=== PATIENT | female | born 1995 | race Caucasian/White ===

== ENCOUNTER 2017-01-18 20:43 | Observation (INO) | payer OTHER ==
[~2017-01-18 20:43] MED LIST: FLUT1SPR9 EACH NARE; HYDR-3533 PO; NAPR550 PO; Z.0.BCPILL PO; ZOFR4TAB3 SL
[2017-01-18 20:45] VITALS: BP 130/85; PULSE 115; RESP 16; TEMP 98.9; O2SAT 100
--- NOTE | 2017-01-18 21:11 | PD ---
HPI Chief Complaint: GI Complaint Time Seen by Provider: 21:09 Travel History International Travel<30 days: No Contact w/Intl Traveler<30days: No Traveled to known affect area: No History of Present Illness HPI 21-year-old female came to the emergency room with history of vomiting and diarrhea for past 15 days. Now she is having some epigastric pain as well. She was tachycardic in triage but did not appear to be in significant distress. She said her last vomit was about 1 hour ago along with diarrhea 2. The diarrhea is watery and nonbloody. She is otherwise a healthy person. Her pain is epigastric and nonradiating. PFSH Past Medical History Narrative Medical List of her past medical, surgical, social and family history was reviewed from the nursing note. GERD: Yes Reproductive: Yes (ENDOMETRIOSIS) Migraines: Yes ?: Not LMP: 01/09/17 : 1 Para: 1 Ovarian Cysts: Yes Social History Alcohol Use: No Tobacco Use: No Substance Use: No Allergies-Medications (Allergen,Severity, Reaction): Coded Allergies: No Known Allergies (Unverified , 01/18/17) Comments No known drug allergies. Reported Meds & Prescriptions Reported Meds & Active Scripts Active Reported Lortab (Hydrocodone-Acetaminophen) 5-325 Mg Tab 1 Tab PO Q6H PRN Narrative Medication List of her home medications reviewed from the nursing note. Review of Systems Except as stated in HPI: all other systems reviewed are Neg Physical Exam Narrative GENERAL: Awake, alert, no obvious distress SKIN: Focused skin assessment warm/dry. HEAD: Atraumatic. Normocephalic. EYES: Pupils equal and round. No scleral icterus. No injection or drainage. ENT: No nasal bleeding or discharge. Dry mucous membrane NECK: Trachea midline. No JVD. CARDIOVASCULAR: Regular rate and rhythm. Tachycardia. No murmur appreciated. RESPIRATORY: No accessory muscle use. Clear to auscultation. Breath sounds equal bilaterally. GASTROINTESTINAL: Abdomen soft, non-tender, nondistended. Hepatic and splenic margins not palpable. MUSCULOSKELETAL: No obvious deformities. No clubbing. No cyanosis. No edema. NEUROLOGICAL: Awake and alert. No obvious cranial nerve deficits. Motor grossly within normal limits. Normal speech. PSYCHIATRIC: Appropriate mood and affect; insight and judgment normal. Data Data Last Documented VS Orders Complete Blood Count With Diff (01/18/17 21:16) Comprehensive Metabolic Panel (01/18/17 21:16) Urinalysis - C+S If Indicated (01/18/17 21:16) Iv Access Insert/Monitor (01/18/17 21:16) Ecg Monitoring (01/18/17 21:16) Oximetry (01/18/17 21:16) Ondansetron Inj (Zofran Inj) (01/18/17 21:30) Sodium Chlor 0.9% 1000 Ml Inj (Ns 1000 M (01/18/17 21:16) Sodium Chloride 0.9% Flush (Ns Flush) (01/18/17 21:30) Ed Urine Pregnancytest Poc (01/18/17 21:16) Lipase (01/18/17 21:37) Sodium Chlor 0.9% 1000 Ml Inj (Ns 1000 M (01/18/17 22:00) Ct Abd/Pel W Iv Contrast(Rout) (01/18/17 ) Pantoprazole Inj (Protonix Inj) (01/19/17 00:00) Iohexol 350 Inj (Omnipaque 350 Inj) (01/19/17 00:28) Admit Order (Ed Use Only) (01/19/17 00:53) Labs MDM Medical Decision Making Medical Screen Exam Complete: Yes Emergency Medical Condition: Yes Medical Record Reviewed: Yes Differential Diagnosis Acute gastritis, acute gastroenteritis, C. difficile colitis, acute pancreatitis Narrative Course 11:54 PM blood test results are back and patient has leukocytosis. But her chemistry was completely within normal limit. Patient was given a liter of IV fluid bolus along with Zofran. She did not have anymore diarrhea episodes but when I went back to reassess her her heart rate was 110 and she told me that she was still having the epigastric pain. At this point I have ordered a CT scan of her abdomen and pelvis. She'll get another liter of IV fluid bolus and Protonix. Waiting for the CAT scan to be done and resulted. 12:[address] shows terminal ileitis. Patient's heart rate at this point is in 100s. Upon asking she said she still has the abdominal pain. I will order some morphine but at this point I decided that she should be admitted so that GI can decide whether to scope her to rule out Crohn's disease. Hospitalist accepted the patient. Procedures EKG Prior to Arrival: No Diagnosis Primary Impression: Diarrhea Qualified Code: R19.7 - Diarrhea, unspecified type Additional Impressions: Abdominal pain Qualified Code: R10.13 - Epigastric pain Leukocytosis Qualified Code: D72.829 - Leukocytosis, unspecified type Terminal ileitis Qualified Code: K50.019 - Terminal ileitis, unspecified complication Admitting Information Admitting Physician Requests: Admit Scripts Simethicone (Gas Relief Maximum Streng)125 Mg [id number] Mg PO Q8HR #90 EA Prov:Shara Rdz 01/23/17 Pantoprazole 40 Mg Tab40 Mg PO DAILY #30 TAB Prov:Shara Rdz 01/23/17 Qasim Eller MD Jan 18, 2017 21:11 Eosinophils (%) (Auto) 4.6 % Basophils (%) (Auto) 0.6 % Neutrophils # (Auto) 15.3 TH/MM3 Lymphocytes # (Auto) 2.7 TH/MM3 Monocytes # (Auto) 0.8 TH/MM3 Eosinophils # (Auto) 0.9 TH/MM3 Basophils # (Auto) 0.1 TH/MM3 CBC Comment DIFF FINAL Differential Comment Sodium Level 140 MEQ/L Potassium Level 3.6 MEQ/L Chloride Level 106 MEQ/L Carbon Dioxide Level 24.6 MEQ/L Anion Gap 9 MEQ/L Blood Urea Nitrogen 11 MG/DL Creatinine 0.73 MG/DL Estimat Glomerular Filtration 100 ML/MIN Rate Random Glucose 76 MG/DL Calcium Level 9.2 MG/DL Total Bilirubin 0.4 MG/DL Aspartate Amino Transf 10 U/L (AST/SGOT) Alanine Aminotransferase 18 U/L (ALT/SGPT) Alkaline Phosphatase 122 U/L Total Protein 8.5 GM/DL Albumin 4.1 GM/DL Lipase 123 U/L Urine Color YELLOW Urine Turbidity HAZY Urine pH 5.0 Urine Specific [place] 1.024 Urine Protein TRACE mg/dL Urine Glucose (UA) NEG mg/dL Urine Ketones NEG mg/dL Urine Occult Blood MOD Urine Nitrite NEG Urine Bilirubin NEG Urine Urobilinogen LESS THAN 2.0 MG/DL Urine Leukocyte Esterase TRACE Urine RBC 9 /hpf Urine WBC 7 /hpf Urine Squamous Epithelial 3 /hpf Cells Urine Bacteria RARE /hpf Urine Hyaline Casts 4 /lpf Urine Mucus FEW /lpf Microscopic Urinalysis Comment CULT NOT INDICATED MDM Medical Decision Making Medical Screen Exam Complete: Yes Emergency Medical Condition: Yes Medical Record Reviewed: Yes Differential Diagnosis Acute gastritis, acute gastroenteritis, C. difficile colitis, acute pancreatitis Narrative Course 11:54 PM blood test results are back and patient has leukocytosis. But her chemistry was completely within normal limit. Patient was given a liter of IV fluid bolus along with Zofran. She did not have anymore diarrhea episodes but when I went back to reassess her her heart rate was 110 and she told me that she was still having the epigastric pain. At this point I have ordered a CT scan of her abdomen and pelvis. She'll get another liter of IV fluid bolus and Protonix. Thing for the CAT scan to be done and resulted. 12:[address] shows terminal ileitis. Patient's heart rate at this point is in 100s. Upon asking she said she still has the abdominal pain. I will order some morphine but at this point I decided that she should be admitted so that GI can decide whether to scope her to rule out Crohn's disease. Hospitalist accepted the patient. Procedures EKG Prior to Arrival: No Diagnosis Primary Impression: Diarrhea Qualified Code: R19.7 - Diarrhea, unspecified type Additional Impressions: Abdominal pain Qualified Code: R10.13 - Epigastric pain Leukocytosis Qualified Code: D72.829 - Leukocytosis, unspecified type Terminal ileitis Qualified Code: K50.019 - Terminal ileitis, unspecified complication Admitting Information Admitting Physician Requests: it Qasim Eller MD Jan 18, 2017 21:11
[2017-01-18] MEDS ORDERED: SODIUM CHLOR 0.9% 1000 ML INJ 1,000 ML IV SCH (21:16)
[2017-01-18] MEDS ORDERED: HYDR-3533 PO (21:21)
[2017-01-18] MEDS ORDERED: OFFICE MEDICATION (21:21)
[2017-01-18] MEDS ORDERED: MEDI220T PO (21:21)
[2017-01-18 21:22] VITALS: O2SAT 95
[2017-01-18] MEDS ORDERED: SODIUM CHLORIDE 0.9% FLUSH 10 ML FLUSH IV FLUSH PRN (21:30)
[2017-01-18] MEDS ORDERED: ONDANSETRON HCL 4 MG/2 ML VIAL IVP ONE (21:30)
[2017-01-18 21:35] LABS: AUTOMATED NEUTROPHIL # 15.3 TH/MM3 (1.8-7.7); BASOPHIL # 0.1 TH/MM3 (0-0.2); BASOPHIL % 0.6 % (0.0-2.0); EOSINOPHIL # 0.9 TH/MM3 (0-0.4); EOSINOPHIL % 4.6 % (0.0-4.0); HEMATOCRIT 40.6 % (35.0-46.0); HEMO FLAGS DIFF FINAL; LYMPH % 13.6 % (9.0-44.0); LYMPHOCYTE # 2.7 TH/MM3 (1.0-4.8); MEAN CELL VOLUME 77.6 FL (80.0-100.0); MEAN CORPUSCULAR HEMOGLOBIN 25.1 PG (27.0-34.0); MEAN CORPUSCULAR HGB CONC 32.3 % (32.0-36.0); MONO % 4.1 % (0.0-8.0); NEUT % 77.1 % (16.0-70.0); PLATELET COUNT 379 TH/MM3 (150-450); RED BLOOD COUNT 5.23 MIL/MM3 (4.00-5.30); RED CELL DISTRIBUTION WIDTH 14.1 % (11.6-17.2); WHITE BLOOD COUNT 19.8 TH/MM3 (4.0-11.0)
[2017-01-18] MEDS ORDERED: SODIUM CHLOR 0.9% 1000 ML INJ 1,000 ML IV ONE (22:00)
[2017-01-18 22:04] LABS: ANION GAP 9 MEQ/L (5-15); AST (GOT) 10 U/L (15-37); BICARBONATE 24.6 MEQ/L (21.0-32.0); BLOOD UREA NITROGEN 11 MG/DL (7-18); CHLORIDE 106 MEQ/L (98-107); GLOMERULAR FILTRATION RATE 100 ML/MIN (>89); POTASSIUM 3.6 MEQ/L (3.5-5.1); SODIUM (NA) 140 MEQ/L (136-145)
[2017-01-18 22:05] LABS: ALT (GPT) 18 U/L (10-53)
[2017-01-18 22:07] LABS: ALKALINE PHOSPHATASE 122 U/L (45-117); TOTAL BILIRUBIN ADULT 0.4 MG/DL (0.2-1.0)
[2017-01-18 22:20] VITALS: BP 109/56; PULSE 95; RESP 18; O2SAT 100
[2017-01-18 23:34] LABS: BACTERIA, URINE RARE /hpf; BLOOD, URINE MOD (NEG); COMMENT (UR) CULT NOT INDICATED; CULTURE IF INDICATED CULT NOT INDICATED; GLUCOSE,URINE NEG (NEG); HYALINE CAST, URINE 4 /lpf (RARE); KETONE, URINE NEG (NEG); MUCUS URINE FEW /lpf (OCC); NITRITE,URINE NEG (NEG); SQUAMOUS EPITHELIAL CELL URINE 3 /hpf (0-5); URINE COLOR YELLOW (YELLW/STRAW)
[2017-01-19] VITALS (7 sets, daily range): BP systolic 93–127; BP diastolic 52–71; PULSE 79–99; RESP 16–18; TEMP 97.1–98.4; O2SAT 94–100
[2017-01-19] MEDS ORDERED: PANTOPRAZOLE SODIUM 40 MG VIAL IV PUSH ONE
[2017-01-19] MEDS ORDERED: IOHEXOL 350 MG/ML 10 ML VIAL (for RAD DIAG) IV ONE (00:28)
--- NOTE | 2017-01-19 00:36 | RADRPT ---
EXAM DATE/TIME: 01/19/2017 00:15 [facility] COMPARISON: No previous studies available for comparison. INDICATIONS : Epigastric pain, nausea and vomiting. IV CONTRAST: 96 cc Omnipaque 350 (iohexol) IV ORAL CONTRAST: No oral contrast ingested. RADIATION DOSE: 9.96 CTDIvol (mGy) MEDICAL HISTORY : Gastroesophageal reflux disease. Endometriosis. Ovarian cysts. SURGICAL HISTORY : None. ENCOUNTER: Initial ACUITY: 2 days PAIN SCALE: 10/10 LOCATION: Bilateral upper quadrant TECHNIQUE: Volumetric scanning of the abdomen and pelvis was performed. Using automated exposure control and ad justment of the mA and/or kV according to patient size, radiation dose was kept as low as reasonably achievable to obtain optimal diagnostic quality images. DICOM format image data is available electro nically for review and comparison. FINDINGS: LOWER LUNGS: The visualized lower lungs are clear. LIVER: Homogeneous density without lesion. There is no dilation of the biliary tree. No calcified gallston es. SPLEEN: Normal size without lesion. PANCREAS: Within normal limits. KIDNEYS: Normal in size and shape. There is no mass, stone or hydronephrosis. ADRENAL GLANDS: Within normal limits. VASCULAR: There is no aortic aneurysm. BOWEL/MESENTERY: There is wall thickening of the distal and terminal ileum. Some slight inflammatory changes. Appendix is normal. Small lymph nodes in the right lower quadrant. There is no free intraperitoneal air or f luid. ABDOMINAL WALL: Within normal limits. RETROPERITONEUM: There is no lymphadenopathy. BLADDER: No wall thickening or mass. REPRODUCTIVE: Within normal limits. INGUINAL: There is no lymphadenopathy or hernia. MUSCULOSKELETAL: Within normal limits for patient age. CONCLUSION: Wall thickening and slight inflammatory change involving the distal and terminal ileum, could be infe ctious or inflammatory such as Crohn's disease. Ferny Morrison MD on January 19, 2017 at 0:32 Board Certified Radiologist. This report was verified electronically.
[2017-01-19] MEDS ORDERED: MORPHINE SULFATE 4 MG/ML INJ IV PUSH ONE (01:00)
[2017-01-19] MEDS ORDERED: SODIUM CHLORIDE 0.9% FLUSH 10 ML FLUSH IV FLUSH PRN (01:45)
[2017-01-19] MEDS ORDERED: BISACODYL 10 MG SUPP RECTAL PRN (01:45)
[2017-01-19] MEDS ORDERED: SENNOSIDES 8.6 MG TAB PO PRN (01:45)
[2017-01-19] MEDS ORDERED: MAGNESIUM HYDROXIDE SUSP 30 ML CUP PO PRN (01:45)
[2017-01-19] MEDS ORDERED: NALOXONE HCL 0.4 MG/ML AMP IV PRN (01:45)
[2017-01-19] MEDS ORDERED: LACTULOSE SYRUP 20 GM/30 ML CUP PO PRN (01:45)
[2017-01-19] MEDS ORDERED: SODIUM CHLOR 0.9% 1000 ML INJ 1,000 ML IV SCH (01:54)
[2017-01-19] MEDS: PANTOPRAZOLE SODIUM 40 MG VIAL IV PUSH SCH (02:00)
[2017-01-19] MEDS: SODIUM CHLOR 0.45% 1000 ML INJ 1,000 ML IV SCH ×2 (02:13→16:24)
[2017-01-19 07:13] LABS: AUTOMATED NEUTROPHIL # 7.3 TH/MM3 (1.8-7.7); BASOPHIL # 0.1 TH/MM3 (0-0.2); BASOPHIL % 0.5 % (0.0-2.0); EOSINOPHIL % 7.6 % (0.0-4.0); HEMATOCRIT 31.6 % (35.0-46.0); HEMO FLAGS DIFF FINAL; LYMPH % 29.5 % (9.0-44.0); LYMPHOCYTE # 3.8 TH/MM3 (1.0-4.8); MEAN CELL VOLUME 77.7 FL (80.0-100.0); MEAN CORPUSCULAR HEMOGLOBIN 25.1 PG (27.0-34.0); MEAN CORPUSCULAR HGB CONC 32.4 % (32.0-36.0); MONO % 5.6 % (0.0-8.0); NEUT % 56.8 % (16.0-70.0); PLATELET COUNT 287 TH/MM3 (150-450); RED BLOOD COUNT 4.06 MIL/MM3 (4.00-5.30); RED CELL DISTRIBUTION WIDTH 13.9 % (11.6-17.2); WHITE BLOOD COUNT 12.8 TH/MM3 (4.0-11.0)
[2017-01-19 07:35] LABS: ALKALINE PHOSPHATASE 93 U/L (45-117); ALT (GPT) 14 U/L (10-53); ANION GAP 7 MEQ/L (5-15); AST (GOT) 5 U/L (15-37); BICARBONATE 25.8 MEQ/L (21.0-32.0); BLOOD UREA NITROGEN 9 MG/DL (7-18); CHLORIDE 111 MEQ/L (98-107); GLOMERULAR FILTRATION RATE 118 ML/MIN (>89); POTASSIUM 3.6 MEQ/L (3.5-5.1); SODIUM (NA) 144 MEQ/L (136-145); TOTAL BILIRUBIN ADULT 0.4 MG/DL (0.2-1.0)
--- NOTE | 2017-01-19 07:46 | PD.CONS ---
HPI History of Present Illness This is a 21 year old female who presented to the ER for evaluation of nausea, abdominal pain, and diarrhea. She reports that she has had these symptoms intermittently for quite some time and that they seem to be related to her menstrual cycle. She started having loose stool about 15 days ago. This is one loose stool per day, with no blood or mucous. Shortly after, she developed nausea/vomiting, consisting of clear or bilious material. About 3-4 days ago, she also developed an intermittent sharp pain in her epigastric area that radiates to her back. Her symptoms are aggravated by food intake. She also reports associated bloating and increased abdominal pain prior to moving her bowels. Her symptoms improve with bowel movements, but quickly return afterwards. She denies any heartburn, reflux, or history of peptic ulcer disease. She endorses some mild fevers and chills at times and reports that she has lost about 10 lbs over the past month. She denies any personal or family history of inflammatory bowel disease. She recently traveled to [place] for 4 days and returned home yesterday, but states she was having her symptoms before she left the country. She denies any suspicious food or sick contacts. She has never had an EGD. She denies any chance of . She came to the ER and was found to have leukocytosis. Abdomen/Pelvis CT (01/18/17)----> Wall thickening and slight inflammatory change involving the distal and terminal ileum, could be infectious or inflammatory such as Crohn's disease. PFSH Past Medical History Migraines Thyroid nodule Insomnia Polycystic ovarian syndrome Chronic sinusitis Anxiety Intermittent nausea/vomiting/pain with associated loose stools, cyclic in nature Endometriosis Past Surgical History None Coded Allergies: No Known Allergies (Unverified , 01/18/17) Medications Allergies Coded Allergies Type Severity Reaction Last Updated Verified No Known Allergies 01/18/17 No Active Scripts Medications Dose Route/Sig Days Date Category Lortab (Hydrocodone-Acetaminophen) 5-325 Mg Tab 1 Tab PO Q6H PRN 01/18/17 Reported Office Medication (Miscellaneous Medication) Misc 01/18/17 Reported Naproxen Sodium 220 Mg Tab 550 Mg PO BID PRN 01/18/17 Reported Family History Denies Social History No use of tobacco, etoh, or illicit drug use. Review of Systems Constitutional: COMPLAINS OF: Fatigue, Fever, Weight loss, Chills, Change in appetite Respiratory: COMPLAINS OF: Cough (sinus congestion), DENIES: Sputum production , Shortness of breath Cardiovascular: DENIES: Chest pain Gastrointestinal: COMPLAINS OF: Abdominal pain, Diarrhea (one loose stool per day), Nausea, Vomiting, Anorexia, Swelling of Abdomen, DENIES: Black stools, Bloody stools, Constipation, Heartburn, Hematemesis Musculoskeletal: COMPLAINS OF: Back pain, DENIES: Joint pain Integumentary: DENIES: Rash Hematologic/lymphatic: DENIES: Bruising Neurologic: COMPLAINS OF: Headache Psychiatric: COMPLAINS OF: Anxiety GI Exam Vitals I&O Vital Signs Date Time Temp Pulse Resp B/P Pulse Ox O2 Delivery O2 Flow Rate FiO2 01/19/17 05:32 97.1 82 18 117/68 99 01/19/17 02:12 88 16 114/57 99 Room Air 01/19/17 00:38 99 18 107/57 100 Room Air 01/18/17 22:20 95 18 109/56 100 Room Air 01/18/17 21:22 95 Room Air 01/18/17 20:45 98.9 115 16 130/85 100 Room Air I/O 01/18/17 01/18/17 01/18/17 01/19/17 01/19/17 01/19/17 07:00 15:00 23:00 07:00 15:00 23:00 Intake Total 315 ml Balance 315 ml Intake IV Total 315 ml Imaging Last Impressions Abdomen/Pelvis CT 01/18/17 0000 Signed Impressions: Service Date/Time: Thursday, January 19, 2017 00:15 - CONCLUSION: Wall thickening and slight inflammatory change involving the distal and terminal ileum, could be infectious or inflammatory such as Crohn's disease. Ferny Morrison MD Laboratory Test 01/18/17 01/18/17 01/19/17 21:20 23:00 06:35 White Blood Count 19.8 TH/MM3 12.8 TH/MM3 Red Blood Count 5.23 MIL/MM3 4.06 MIL/MM3 Hemoglobin 13.1 GM/DL 10.2 GM/DL Hematocrit 40.6 % 31.6 % Mean Corpuscular Volume 77.6 FL 77.7 FL Mean Corpuscular Hemoglobin 25.1 PG 25.1 PG Mean Corpuscular Hemoglobin 32.3 % 32.4 % Concent Red Cell Distribution Width 14.1 % 13.9 % Platelet Count 379 TH/MM3 287 TH/MM3 Mean Platelet Volume 8.5 FL 8.2 FL Neutrophils (%) (Auto) 77.1 % 56.8 % Lymphocytes (%) (Auto) 13.6 % 29.5 % Monocytes (%) (Auto) 4.1 % 5.6 % Eosinophils (%) (Auto) 4.6 % 7.6 % Basophils (%) (Auto) 0.6 % 0.5 % Neutrophils # (Auto) 15.3 TH/MM3 7.3 TH/MM3 Lymphocytes # (Auto) 2.7 TH/MM3 3.8 TH/MM3 Monocytes # (Auto) 0.8 TH/MM3 0.7 TH/MM3 Eosinophils # (Auto) 0.9 TH/MM3 1.0 TH/MM3 Basophils # (Auto) 0.1 TH/MM3 0.1 TH/MM3 CBC Comment DIFF FINAL DIFF FINAL Differential Comment Sodium Level 140 MEQ/L 144 MEQ/L Potassium Level 3.6 MEQ/L 3.6 MEQ/L Chloride Level 106 MEQ/L 111 MEQ/L Carbon Dioxide Level 24.6 MEQ/L 25.8 MEQ/L Anion Gap 9 MEQ/L 7 MEQ/L Blood Urea Nitrogen 11 MG/DL 9 MG/DL Creatinine 0.73 MG/DL 0.63 MG/DL Estimat Glomerular Filtration 100 ML/MIN 118 ML/MIN Rate Random Glucose 76 MG/DL 77 MG/DL Calcium Level 9.2 MG/DL 7.9 MG/DL Total Bilirubin 0.4 MG/DL 0.4 MG/DL Aspartate Amino Transf 10 U/L 5 U/L (AST/SGOT) Alanine Aminotransferase 18 U/L 14 U/L (ALT/SGPT) Alkaline Phosphatase 122 U/L 93 U/L Total Protein 8.5 GM/DL 6.4 GM/DL Albumin 4.1 GM/DL 2.9 GM/DL Lipase 123 U/L Urine Color YELLOW Urine Turbidity HAZY Urine pH 5.0 Urine Specific [place] 1.024 Urine Protein TRACE mg/dL Urine Glucose (UA) NEG mg/dL Urine Ketones NEG mg/dL Urine Occult Blood MOD Urine Nitrite NEG Urine Bilirubin NEG Urine Urobilinogen LESS THAN 2.0 MG/DL Urine Leukocyte Esterase TRACE Urine RBC 9 /hpf Urine WBC 7 /hpf Urine Squamous Epithelial 3 /hpf Cells Urine Bacteria RARE /hpf Urine Hyaline Casts 4 /lpf Urine Mucus FEW /lpf Microscopic Urinalysis Comment CULT NOT INDICATED Physical Examination HEENT: Normocephalic; atraumatic; no jaundice. CHEST: CTA CARDIAC: RRR ABDOMEN: Soft, nondistended, moderate tenderness RLQ and epigastric area; no hepatosplenomegaly; bowel sounds are present in all four quadrants. EXTREMITIES: No clubbing, cyanosis, or edema. SKIN: Normal; no rash; no jaundice. 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 Assessment and Plan Plan ASSESSMENT: - Ileitis, undetermined etiology at this time. C/O N/V/Diarrhea/Epigastric pain radiating to back, but has significant RLQ tenderness on exam. She has had the same symptoms intermittently and reports that her symptoms seem to be related to food intake and her menstrual cycle. This episode began with loose stool and n/v about 15 days ago and with epigastric pain about 3-4 days ago. WBC was 19.8 on admission. Recently traveled to [place], but had symptoms prior to this. Denies suspicious food/ sick contacts. Abdomen/Pelvis CT (01/18/17)----> Wall thickening and slight inflammatory change involving the distal and terminal ileum, could be infectious or inflammatory such as Crohn's disease. Will get stool studies. US has also been ordered, as her symptoms began about a year ago when her diet changed and she reports that it is worse with fried foods. - Abdominal pain with bloating/nausea/vomiting/loose stools. CT as above. US. Will get stool studies. Add flagyl. - Abn. Wt. Loss. 10 lb weight loss over the past 15 days. - Leukocytosis. WBC 19.8, 12.8. Add flagyl PLAN: - Clear liquids after US - Cont. PPI - Add Flagyl - RUQ US - Stool studies- Cdiff, O&P, Giardia, WBC, Enteric pathogens - CBC, CMP in am - Supportive care - Possible EGD/Colonoscopy after results of above - Further recommendations to follow based on results of above - Pt seen and examined by Dr. Gallegos and myself and this note is written on his behalf Sujey Drew Jan 19, 2017 07:46
--- NOTE | 2017-01-19 08:43 | HHI.HP ---
HPI Service [facility] Hospitalists Primary Care Physician Yuliana Davis M.D. Admission Diagnosis leukocytosis, tachycardia, abdominal pain, diarrhea Chief Complaint: Abdominal pain, diarrhea Travel History International Travel<30 Days: No Contact w/Intl Traveler <30 Da: No Traveled to Known Affected Are: No History of Present Illness Ms. Naranjo is a pleasant 21 y/o female with PCOS and chronic migraine headaches. She presented to the ED at [facility] on 01/18/17 with complaints of epigastric abdominal pain and loose stools for the last 15 days. She has had issues with episodic epigastric abdominal pain that radiates to her back. This seems to be related to food intake, worse with fried foods and fatty foods, like steak. She reports that in the last 2-3 days she has had vomiting and has been unable to hold any food or fluids down. She reports having 1 loose BM per day. Denies any melena, BRBPR or hematochezia. She states that she has had symptoms of epigastric pain and loose stools on and off for the last year since moving to the from [place]. She does report some cyclic symptoms related to her periods but also related the abdominal pain to food intake. She has lost about 5lbs in the last week. Pt has had subjective fevers on and off which she relates to issues with her sinuses as she reports having chronic sinusitis. She denies any recent antibiotic use. CT Abd/pelvis in the ED noted wall thickening and slight inflammatory change involving the distal and terminal ileum, could be infectious or inflammatory such as Crohn's disease. She reports that her mother has had issues with her colon but the specific of this are unclear. Pt denies any palpitations, hematemesis, dizziness, weakness, SOB or chest pain. Review of Systems Constitutional: COMPLAINS OF: Fever, Weight loss, Change in appetite, DENIES: Dizziness Eyes: DENIES: Vision loss Ears, nose, mouth, throat: DENIES: Hearing loss Respiratory: DENIES: Cough, Shortness of breath Cardiovascular: DENIES: Chest pain, Palpitations Gastrointestinal: COMPLAINS OF: Abdominal pain, Diarrhea, Nausea, Vomiting, DENIES: Black stools, Bloody stools Genitourinary: DENIES: Hematuria, Dysuria Musculoskeletal: DENIES: Back pain, Neck pain Integumentary: DENIES: Rash Neurologic: COMPLAINS OF: Headache Psychiatric: DENIES: Confusion Past Family Social History Past Medical History PCOS Migraine headaches Thyroid nodule Anxiety Past Surgical History No previous surgeries Reported Medications Lortab (Hydrocodone-Acetaminophen) 5-325 Mg Tab 1 Tab PO Q6H PRN Office Medication (Miscellaneous Medication) Misc Naproxen Sodium 220 Mg Tab 550 Mg PO BID PRN Allergies: Coded Allergies: No Known Allergies (Unverified , 01/18/17) Family History Mother with hx of "Colon issues" but specifics are unclear Social History Denies any alcohol, tobacco or illicit drug use Pt is from [place] and moved to the 1 year ago Pt works at [employer] as a [employer] Physical Exam Vital Signs Vital Signs Date Time Temp Pulse Resp B/P Pulse Ox O2 Delivery O2 Flow Rate FiO2 01/19/17 05:32 97.1 82 18 117/68 99 01/19/17 02:12 88 16 114/57 99 Room Air 01/19/17 00:38 99 18 107/57 100 Room Air 01/18/17 22:20 95 18 109/56 100 Room Air 01/18/17 21:22 95 Room Air 01/18/17 20:45 98.9 115 16 130/85 100 Room Air Physical Exam GENERAL: This is a well-nourished, well-developed patient, in no apparent distress. HEENT: Atraumatic. Normocephalic. No temporal or scalp tenderness. No scleral icterus. Airway patent. NECK: Trachea midline, supple, nontender. CARDIO: Regular. RESP: CTA bilaterally. No wheezes, rales, or rhonchi. ABD: +BS, soft, epigastric and RLQ tenderness, nondistended. EXT: Extremities without clubbing, cyanosis, or edema. NEURO: Awake and alert. Motor and sensory grossly within normal limits. Normal speech. Laboratory Laboratory Tests Test 01/18/17 01/18/17 01/19/17 21:20 23:00 06:35 White Blood Count 19.8 12.8 Red Blood Count 5.23 4.06 Hemoglobin 13.1 10.2 Hematocrit 40.6 31.6 Mean Corpuscular Volume 77.6 77.7 Mean Corpuscular Hemoglobin 25.1 25.1 Mean Corpuscular Hemoglobin 32.3 32.4 Concent Red Cell Distribution Width 14.1 13.9 Platelet Count 379 287 Mean Platelet Volume 8.5 8.2 Neutrophils (%) (Auto) 77.1 56.8 Lymphocytes (%) (Auto) 13.6 29.5 Monocytes (%) (Auto) 4.1 5.6 Eosinophils (%) (Auto) 4.6 7.6 Basophils (%) (Auto) 0.6 0.5 Neutrophils # (Auto) 15.3 7.3 Lymphocytes # (Auto) 2.7 3.8 Monocytes # (Auto) 0.8 0.7 Eosinophils # (Auto) 0.9 1.0 Basophils # (Auto) 0.1 0.1 CBC Comment DIFF FINAL DIFF FINAL Differential Comment Sodium Level 140 144 Potassium Level 3.6 3.6 Chloride Level 106 111 Carbon Dioxide Level 24.6 25.8 Anion Gap 9 7 Blood Urea Nitrogen 11 9 Creatinine 0.73 0.63 Estimat Glomerular Filtration 100 118 Rate Random Glucose 76 77 Calcium Level 9.2 7.9 Total Bilirubin 0.4 0.4 Aspartate Amino Transf 10 5 (AST/SGOT) Alanine Aminotransferase 18 14 (ALT/SGPT) Alkaline Phosphatase 122 93 Total Protein 8.5 6.4 Albumin 4.1 2.9 Lipase 123 Urine Color YELLOW Urine Turbidity HAZY Urine pH 5.0 Urine Specific [place] 1.024 Urine Protein TRACE Urine Glucose (UA) NEG Urine Ketones NEG Urine Occult Blood MOD Urine Nitrite NEG Urine Bilirubin NEG Urine Urobilinogen LESS THAN 2.0 Urine Leukocyte Esterase TRACE Urine RBC 9 Urine WBC 7 Urine Squamous Epithelial 3 Cells Urine Bacteria RARE Urine Hyaline Casts 4 Urine Mucus FEW Microscopic Urinalysis Comment CULT NOT INDICATED Result Diagram: 01/19/17 0635 01/19/17 0635 Imaging Last Impressions Abdomen/Pelvis CT 01/18/17 0000 Signed Impressions: Service Date/Time: Thursday, January 19, 2017 00:15 - CONCLUSION: Wall thickening and slight inflammatory change involving the distal and terminal ileum, could be infectious or inflammatory such as Crohn's disease. Ferny Morrison MD Septic Shock Reassessment Heart: Regular rate and rhythm Lungs: Clear Skin: Warm Assessment and Plan Problem List: (1) Abdominal pain Status: Chronic Plan: - Pt has been having issues with epigastric abdominal pain and loose stools for the last year. It has been consistent for the last 15 days which is the worse episode she has had and for the last 2- 3 days she has had N/V and unable to keep any food or fluids down - Pts pain has been related to food intake, especially fatty foods/fried foods. - Pt was noted to have leukocytosis in the ED which has improved today from 19.8 to 12.8 ?reactive vs. infectious - CT Abd/pelvis (01/19) --> Wall thickening and slight inflammatory change involving the distal and terminal ileum, could be infectious or inflammatory such as Crohn's disease. - GI has been consulted - Stool studies have been ordered - Flagyl IV was added today - IVF - Check GB US - Ok for clear liquids after US - Monitor clinical status and for any fevers - Pt will likely need evaluation with EGD/Colonoscopy to further evaluate her CT scan findings. - Monitor labs - Supportive care - DVT prophylaxis with SCDs (2) Diarrhea Status: Chronic Plan: - See above. - Pt has been having loose stools on and off for the last year, typically has 1 nonbloody BM per day. - Stool studies ordered to r/o infectious process. (3) Leukocytosis Status: Acute Plan: - See above. (4) Abnormal CT of the abdomen Status: Acute Plan: - See above. Assessment and Plan Patient examined. Assessment and plan formulated with Shara Rdz PA-C. I agree with the above. Physician Certification 2 Midnight Certification Type: Admission for Inpatient Services Order for Inpatient Services The services are ordered in accordance with Medicare regulations or non- Medicare payer requirements, as applicable. In the case of services not specified as inpatient-only, they are appropriately provided as inpatient services in accordance with the 2-midnight benchmark. Estimated LOS (days): 3 3 days is the estimated time the patient will need to remain in the hospital, assuming treatment plan goals are met and no additional complications. Post-Hospital Plan: Home Problem Qualifiers (1) Abdominal pain: Qualified Code: R10.13 - Epigastric pain (2) Diarrhea: Qualified Code: R19.7 - Diarrhea, unspecified type (3) Leukocytosis: Qualified Code: D72.829 - Leukocytosis, unspecified type Shara Rdz Jan 19, 2017 08:43 Beto Do DO Jan 20, 2017 00:17
[2017-01-19] MEDS: DOCUSATE SODIUM 50 MG/SENNA 8.6 MG TAB PO SCH ×2 (09:00→21:00)
[2017-01-19] MEDS: SODIUM CHLORIDE 0.9% FLUSH 10 ML FLUSH IV FLUSH SCH ×2 (09:00→21:03)
[2017-01-19] MEDS: metroNIDAZOLE 500 MG INJ 100 ML IV SCH ×2 (10:00→17:03)
--- NOTE | 2017-01-19 10:56 | RADRPT ---
EXAM DATE/TIME: 01/19/2017 10:12 [facility] COMPARISON: No previous studies available for comparison. INDICATIONS : Right upper quadrant pain. MEDICAL HISTORY : Migraines. Abdominal pain. Nausea/vomiting. GERD. Endometriosis. PCOS. Thyroid nodule. Depression. An xiety. SURGICAL HISTORY : None. ENCOUNTER: Initial ACUITY: 4-6 days PAIN SCORE: 8/10 LOCATION: Right upper quadrant MEASUREMENTS: LIVER: 17.0 cm length COMMON DUCT: 2 mm RIGHT KIDNEY: 12.1 x 5.0 x 4.5 cm FINDINGS: Liver is mildly enlarged. No focal lesion. Portal venous flow is normal direction. No biliary ductal dilatation and no gallstones. Right kidney measures 12 cm in length. No hydronephrosis. Pancreas is not well visualized. No free fl uid. CONCLUSION: 1. No acute findings. Mild fatty liver. No free fluid. No right-sided hydronephrosis. No gallstones i dentified. Toro Morrissey MD on January 19, 2017 at 10:51 Board Certified Radiologist. This report was verified electronically.
[2017-01-19] MEDS: MORPHINE SULFATE 4 MG/ML INJ IV PRN (19:35)
[2017-01-20] VITALS: BP 126/69; PULSE 84; RESP 18; TEMP 97.7; O2SAT 99
[2017-01-20] MEDS: metroNIDAZOLE 500 MG INJ 100 ML IV SCH (02:08)
[2017-01-20] MEDS: PANTOPRAZOLE SODIUM 40 MG VIAL IV PUSH SCH (02:08)
[2017-01-20 04:00] VITALS: BP 112/69; PULSE 80; RESP 16; TEMP 96.9; O2SAT 100
[2017-01-20] MEDS: SODIUM CHLOR 0.45% 1000 ML INJ 1,000 ML IV SCH ×2 (04:20→08:04)
[2017-01-20] MEDS: DOCUSATE SODIUM 50 MG/SENNA 8.6 MG TAB PO SCH ×2 (08:04→20:55)
[2017-01-20 08:26] LABS: AUTOMATED NEUTROPHIL # 3.9 TH/MM3 (1.8-7.7); BASOPHIL # 0.1 TH/MM3 (0-0.2); BASOPHIL % 1.2 % (0.0-2.0); EOSINOPHIL # 0.6 TH/MM3 (0-0.4); EOSINOPHIL % 7.4 % (0.0-4.0); HEMO FLAGS DIFF FINAL; LYMPH % 35.3 % (9.0-44.0); LYMPHOCYTE # 2.8 TH/MM3 (1.0-4.8); MEAN CELL VOLUME 77.5 FL (80.0-100.0); MEAN CORPUSCULAR HEMOGLOBIN 25.2 PG (27.0-34.0); MEAN CORPUSCULAR HGB CONC 32.5 % (32.0-36.0); MONO % 6.1 % (0.0-8.0); PLATELET COUNT 320 TH/MM3 (150-450); RED BLOOD COUNT 4.13 MIL/MM3 (4.00-5.30); WHITE BLOOD COUNT 7.8 TH/MM3 (4.0-11.0)
[2017-01-20 08:46] LABS: ALT (GPT) 16 U/L (10-53); ANION GAP 7 MEQ/L (5-15); BICARBONATE 26.8 MEQ/L (21.0-32.0); BLOOD UREA NITROGEN 4 MG/DL (7-18); CHLORIDE 110 MEQ/L (98-107); POTASSIUM 3.2 MEQ/L (3.5-5.1); SODIUM (NA) 144 MEQ/L (136-145)
[2017-01-20 08:48] VITALS: BP 114/63; PULSE 80; RESP 20; TEMP 96.2; O2SAT 98
[2017-01-20 08:49] LABS: ALKALINE PHOSPHATASE 94 U/L (45-117); AST (GOT) 8 U/L (15-37); GLOMERULAR FILTRATION RATE 130 ML/MIN (>89); TOTAL BILIRUBIN ADULT 0.3 MG/DL (0.2-1.0)
--- NOTE | 2017-01-20 10:13 | HHI.PR ---
Subjective Remarks Abdominal pain improved. Pt tolerating PO intake. No n/v/d. Objective Vitals Vital Signs Date Time Temp Pulse Resp B/P Pulse Ox O2 Delivery O2 Flow Rate FiO2 01/20/17 08:48 96.2 80 20 114/63 98 01/20/17 04:00 96.9 80 16 112/69 100 01/20/17 00:00 97.7 84 18 126/69 99 01/19/17 20:00 97.6 83 18 118/71 100 01/19/17 19:45 16 01/19/17 15:31 97.6 82 18 127/71 100 01/19/17 12:00 98.4 79 18 98/59 96 01/19/17 01/19/17 01/20/17 15:00 23:00 07:00 Intake Total 0 ml 240 ml 480 ml Balance 0 ml 240 ml 480 ml Intake Oral 0 ml 240 ml 480 ml # Voids 4 1 3 # Bowel Movements 0 1 Result Diagram: 01/20/17 0809 01/20/17 0804 Imaging Last Impressions Abdomen/Pelvis CT 01/18/17 0000 Signed Impressions: Service Date/Time: Thursday, January 19, 2017 00:15 - CONCLUSION: Wall thickening and slight inflammatory change involving the distal and terminal ileum, could be infectious or inflammatory such as Crohn's disease. Ferny Morrison MD Objective Remarks GENERAL: This is a well-nourished, well-developed patient, in no apparent distress. CARDIOVASCULAR: Regular rate and rhythm without murmurs, gallops, or rubs. RESPIRATORY: Clear to auscultation. Breath sounds equal bilaterally. No wheezes , rales, or rhonchi. GASTROINTESTINAL: Abdomen soft, non-tender, nondistended. Normal active bowel sounds MUSCULOSKELETAL: Extremities without clubbing, cyanosis, or edema. NEURO: Alert & Oriented x4 to person, place, time, situation. Moves all ext x4 A/P Problem List: (1) Abdominal pain Status: Chronic Plan: - comgmt with GI - Pt has been having issues with epigastric abdominal pain and loose stools for the last year. It has been consistent for the last 15 days and worse for the last 2-3 days prior to admission. She has had N/V and unable to keep any food or fluids down - Pts pain has been related to food intake, especially fatty foods/fried foods. - Pt was noted to have leukocytosis in the ED which has improved today from 19.8K (01/18) to 7.8 (01/20/17) - CT Abd/pelvis (01/19) --> Wall thickening and slight inflammatory change involving the distal and terminal ileum, could be infectious or inflammatory such as Crohn's disease. - GB US (01/19/17) --> NO acute findings - Stool studies --> pending - Flagyl IV (01/19 - present), change to PO - advance diet - Pt will likely need evaluation with EGD/Colonoscopy --> 01/22/17 - Monitor labs - Supportive care - DVT prophylaxis with SCDs (2) Diarrhea Status: Chronic Plan: - See above. - Pt has been having loose stools on and off for the last year, typically has 1 nonbloody BM per day. - Stool studies --> pending (3) Leukocytosis Status: Acute Plan: - See above. (4) Abnormal CT of the abdomen Status: Acute Plan: - See above. Problem Qualifiers (1) Abdominal pain: Qualified Code: R10.13 - Epigastric pain (2) Diarrhea: Qualified Code: R19.7 - Diarrhea, unspecified type (3) Leukocytosis: Qualified Code: D72.829 - Leukocytosis, unspecified type Beto Do DO Jan 20, 2017 10:13
[2017-01-20] MEDS: POTASSIUM CHLORIDE 20 MEQ CONTROLLED RELEASE TAB PO SCH ×2 (10:55→15:38)
--- NOTE | 2017-01-20 12:01 | HHI.GIFU ---
Subjective Remarks Resting in bed. States she feels better today. No n/v. C/O Epigastric/LUQ pain- improved. One liquid stool, no blood. Tolerating diet. (Sujey Drew) Objective Vitals I&O Vital Signs Date Time Temp Pulse Resp B/P Pulse Ox O2 Delivery O2 Flow Rate FiO2 01/20/17 08:48 96.2 80 20 114/63 98 01/20/17 04:00 96.9 80 16 112/69 100 01/20/17 00:00 97.7 84 18 126/69 99 01/19/17 20:00 97.6 83 18 118/71 100 01/19/17 19:45 16 01/19/17 15:31 97.6 82 18 127/71 100 01/19/17 12:00 98.4 79 18 98/59 96 I/O 01/19/17 01/19/17 01/19/17 01/20/17 01/20/17 01/20/17 06:59 14:59 22:59 06:59 14:59 22:59 Intake Total 315 ml 0 ml 240 ml 480 ml Balance 315 ml 0 ml 240 ml 480 ml Intake Oral 0 ml 240 ml 480 ml IV Total 315 ml # Voids 4 1 3 # Bowel Movements 0 1 Laboratory Laboratory Tests Test 01/19/17 01/20/17 01/20/17 17:36 08:04 08:09 Lactic Acid Level 2.5 0.9 Sodium Level 144 Potassium Level 3.2 Chloride Level 110 Carbon Dioxide Level 26.8 Anion Gap 7 Blood Urea Nitrogen 4 Creatinine 0.58 Estimat Glomerular Filtration 130 Rate Random Glucose 79 Calcium Level 8.2 Total Bilirubin 0.3 Aspartate Amino Transf 8 (AST/SGOT) Alanine Aminotransferase 16 (ALT/SGPT) Alkaline Phosphatase 94 Total Protein 6.5 Albumin 3.0 White Blood Count 7.8 Red Blood Count 4.13 Hemoglobin 10.4 Hematocrit 32.0 Mean Corpuscular Volume 77.5 Mean Corpuscular Hemoglobin 25.2 Mean Corpuscular Hemoglobin 32.5 Concent Red Cell Distribution Width 14.0 Platelet Count 320 Mean Platelet Volume 8.3 Neutrophils (%) (Auto) 50.0 Lymphocytes (%) (Auto) 35.3 Monocytes (%) (Auto) 6.1 Eosinophils (%) (Auto) 7.4 Basophils (%) (Auto) 1.2 Neutrophils # (Auto) 3.9 Lymphocytes # (Auto) 2.8 Monocytes # (Auto) 0.5 Eosinophils # (Auto) 0.6 Basophils # (Auto) 0.1 CBC Comment DIFF FINAL Differential Comment Date/Time Procedure Status Source Growth 01/19/17 14:55 Aerobic Blood Culture - Preliminary Resulted Blood Other NO GROWTH IN 1 DAY 01/19/17 14:55 Anaerobic Blood Culture - Preliminary Resulted Blood Other NO GROWTH IN 1 DAY Imaging Last Impressions Gall Bladder Ultrasound 01/19/17 0000 Signed Impressions: Service Date/Time: Thursday, January 19, 2017 10:12 - CONCLUSION: 1. No acute findings. Mild fatty liver. No free fluid. No right-sided hydronephrosis. No gallstones identified. Toro Morrissey MD Abdomen/Pelvis CT 01/18/17 0000 Signed Impressions: Service Date/Time: Thursday, January 19, 2017 00:15 - CONCLUSION: Wall thickening and slight inflammatory change involving the distal and terminal ileum, could be infectious or inflammatory such as Crohn's disease. Ferny Morrison MD Physical Exam HEENT: Normocephalic; atraumatic; no jaundice. CHEST: CTA CARDIAC: RRR. ABDOMEN: Soft, nondistended, nontender; no hepatosplenomegaly; bowel sounds are present in all four quadrants. EXTREMITIES: No clubbing, cyanosis, or edema. SKIN: Normal; no rash; no jaundice. 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 (Sujey Drew [facility]) Assessment and Plan Plan ASSESSMENT: - Ileitis, undetermined etiology at this time. C/O N/V/Diarrhea/Epigastric pain radiating to back, but has significant RLQ tenderness on exam. She has had the same symptoms intermittently and reports that her symptoms seem to be related to food intake and her menstrual cycle. This episode began with loose stool and n/v about 15 days ago and with epigastric pain about 3-4 days ago. WRecently traveled to [place], but had symptoms prior to this. Denies suspicious food/sick contacts. Abdomen/Pelvis CT (01/18/17)----> Wall thickening and slight inflammatory change involving the distal and terminal ileum, could be infectious or inflammatory such as Crohn's disease. Pain improved, c/o LUQ discomfort, one loose stool. States her mother has colon issues- unsure what kind of problems. WBC improved 7.8. Stool studies pending. EGD/Colonoscopy on Sunday. Flagyl - Abdominal pain with bloating/nausea/vomiting/loose stools. CT as above. Gall Bladder Ultrasound (01/19/17)----> 1. No acute findings. Mild fatty liver. No free fluid. No right-sided hydronephrosis. No gallstones identified. PPI, Flagyl. - Abn. Wt. Loss. 10 lb weight loss over the past 15 days. - Leukocytosis. WBC improved 7.8. Flagyl PLAN: - Plan for EGD/Colonoscopy Sunday - Obtain consents - BINTA today - Start clear liquids tomorrow at lunch - Golytely prep tomorrow at 1600 - NPO after MN Sunday night - Cont. PPI - Cont. Flagyl - Stool studies- Cdiff, O&P, Giardia, WBC, Enteric pathogens - CBC, BMP in am - Supportive care - Further recommendations to follow based on results of above - Pt seen and examined by Dr. Rubio and myself and this note is written on his behalf (Sujey Drew) Plan Patient was seen and examined, agree with above note and plan, colon EGD Sunday. (Steph Rubio MD) Sujey Drew Jan 20, 2017 12:01 Steph Rubio MD Jan 20, 2017 17:23
[2017-01-20 12:24] VITALS: BP 117/57; PULSE 74; RESP 20; TEMP 99.4; O2SAT 99
[2017-01-20] MEDS: metroNIDAZOLE 500 MG TAB PO SCH ×2 (13:08→20:55)
[2017-01-20 16:49] VITALS: BP 115/68; PULSE 79; RESP 20; TEMP 96.8; O2SAT 100
[2017-01-20 16:54] LABS: C. DIFF EPI 027 PRESUMPTIVE NEGATIVE (NEGATIVE); C. DIFF TOXIN PCR NEGATIVE (NEGATIVE)
[2017-01-20 20:00] VITALS: BP 123/70; PULSE 97; RESP 18; TEMP 97.9; O2SAT 99
[2017-01-20] MEDS: SODIUM CHLORIDE 0.9% FLUSH 10 ML FLUSH IV FLUSH SCH (20:56)
[2017-01-21] VITALS: BP 105/58; PULSE 92; RESP 18; TEMP 97.6; O2SAT 98
[2017-01-21 05:15] VITALS: BP 105/57; PULSE 86; RESP 16; TEMP 96.7; O2SAT 100
[2017-01-21] MEDS: metroNIDAZOLE 500 MG TAB PO SCH ×3 (05:18→21:40)
[2017-01-21 06:37] LABS: AUTOMATED NEUTROPHIL # 4.1 TH/MM3 (1.8-7.7); BASOPHIL # 0.1 TH/MM3 (0-0.2); BASOPHIL % 1.1 % (0.0-2.0); EOSINOPHIL # 0.6 TH/MM3 (0-0.4); EOSINOPHIL % 6.6 % (0.0-4.0); HEMATOCRIT 34.3 % (35.0-46.0); HEMO FLAGS DIFF FINAL; LYMPHOCYTE # 3.7 TH/MM3 (1.0-4.8); MEAN CELL VOLUME 77.6 FL (80.0-100.0); MEAN CORPUSCULAR HEMOGLOBIN 25.3 PG (27.0-34.0); MEAN CORPUSCULAR HGB CONC 32.6 % (32.0-36.0); MONO % 6.6 % (0.0-8.0); NEUT % 44.7 % (16.0-70.0); PLATELET COUNT 325 TH/MM3 (150-450); RED BLOOD COUNT 4.42 MIL/MM3 (4.00-5.30); WHITE BLOOD COUNT 9.1 TH/MM3 (4.0-11.0)
[2017-01-21 06:57] LABS: BICARBONATE 26.3 MEQ/L (21.0-32.0); MAGNESIUM 2.2 MG/DL (1.5-2.5); POTASSIUM 3.9 MEQ/L (3.5-5.1)
[2017-01-21 08:43] VITALS: BP 106/50; PULSE 65; RESP 20; TEMP 96.9; O2SAT 98
[2017-01-21] MEDS: SODIUM CHLORIDE 0.9% FLUSH 10 ML FLUSH IV FLUSH SCH ×2 (09:00→21:40)
[2017-01-21] MEDS: MORPHINE SULFATE 4 MG/ML INJ IV PRN ×3 (09:09→21:40)
[2017-01-21] MEDS: PANTOPRAZOLE SOD 40 MG DELAYED RELEASE TAB PO SCH (09:09)
[2017-01-21] MEDS: DOCUSATE SODIUM 50 MG/SENNA 8.6 MG TAB PO SCH ×2 (09:09→21:00)
--- NOTE | 2017-01-21 10:37 | HHI.GIFU ---
Subjective Remarks Resting in bed, in no apparent distress. Reports epigastric and LUQ abdominal pain is improving. Continues to have intermittent nausea, no vomiting. ( Sloane Shane) Objective Vitals I&O Vital Signs Date Time Temp Pulse Resp B/P Pulse Ox O2 Delivery O2 Flow Rate FiO2 01/21/17 08:43 96.9 65 20 106/50 98 01/21/17 05:15 96.7 86 16 105/57 100 01/21/17 00:00 97.6 92 18 105/58 98 01/20/17 20:00 97.9 97 18 123/70 99 01/20/17 16:49 96.8 79 20 115/68 100 01/20/17 12:24 99.4 74 20 117/57 99 I/O 01/20/17 01/20/17 01/20/17 01/21/17 01/21/17 01/21/17 07:00 15:00 23:00 07:00 15:00 23:00 Intake Total 480 ml 1440 ml 480 ml 720 ml Balance 480 ml 1440 ml 480 ml 720 ml Intake Oral 480 ml 1440 ml 480 ml 720 ml # Voids 3 2 2 3 # Bowel Movements 1 1 Laboratory Laboratory Tests Test 01/20/17 01/21/17 15:15 05:47 Stool C. difficile Toxin (PCR) NEGATIVE Stl C. difficile Toxin PRESUMPTIVE Epiderm 027 NEGATIVE White Blood Count 9.1 Red Blood Count 4.42 Hemoglobin 11.2 Hematocrit 34.3 Mean Corpuscular Volume 77.6 Mean Corpuscular Hemoglobin 25.3 Mean Corpuscular Hemoglobin 32.6 Concent Red Cell Distribution Width 14.0 Platelet Count 325 Mean Platelet Volume 8.3 Neutrophils (%) (Auto) 44.7 Lymphocytes (%) (Auto) 41.0 Monocytes (%) (Auto) 6.6 Eosinophils (%) (Auto) 6.6 Basophils (%) (Auto) 1.1 Neutrophils # (Auto) 4.1 Lymphocytes # (Auto) 3.7 Monocytes # (Auto) 0.6 Eosinophils # (Auto) 0.6 Basophils # (Auto) 0.1 CBC Comment DIFF FINAL Differential Comment Sodium Level 141 Potassium Level 3.9 Chloride Level 106 Carbon Dioxide Level 26.3 Anion Gap 9 Blood Urea Nitrogen 10 Creatinine 0.68 Estimat Glomerular Filtration 108 Rate Random Glucose 92 Calcium Level 8.8 Magnesium Level 2.2 Date/Time Procedure Status Source Growth 01/19/17 14:55 Aerobic Blood Culture - Preliminary Resulted Blood Other NO GROWTH IN 1 DAY 01/19/17 14:55 Anaerobic Blood Culture - Preliminary Resulted Blood Other NO GROWTH IN 1 DAY Physical Exam HEENT: Normocephalic; atraumatic; no jaundice. CHEST: CTA CARDIAC: RRR. ABDOMEN: Soft, nondistended, nontender; no hepatosplenomegaly; bowel sounds x 4 quadrants. EXTREMITIES: No clubbing, cyanosis, or edema. SKIN: Normal; no rash; no jaundice. 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 (Sloane Shane) Assessment and Plan Plan ASSESSMENT: - Ileitis, undetermined etiology at this time. C/O N/V/Diarrhea/Epigastric pain radiating to back, improving. She has had the same symptoms intermittently and reports that her symptoms seem to be related to food intake and her menstrual cycle. This episode began with loose stool and n/v about 15 days ago and with epigastric pain about 3-4 days ago. Recently traveled to [place], but had symptoms prior to this. Denies suspicious food/sick contacts. Abdomen/Pelvis CT (01/18/17)----> Wall thickening and slight inflammatory change involving the distal and terminal ileum, could be infectious or inflammatory such as Crohn's disease. States her mother has colon issues- unsure what kind of problems. WBC improved 9.1. C diff negative. Other stool studies pending. EGD/Colonoscopy on Sunday. Flagyl - Abdominal pain with bloating/nausea/vomiting/loose stools. CT as above. Gall Bladder Ultrasound (01/19/17)----> 1. No acute findings. Mild fatty liver. No free fluid. No right-sided hydronephrosis. No gallstones identified. PPI, Flagyl. - Abn. Wt. Loss. 10 lb weight loss over the past 15 days. - Leukocytosis. WBC improved 9.1. Flagyl PLAN: - Plan for EGD/Colonoscopy Sunday - Obtain consents - Clear liquids today - Golytely prep today at 1600 - NPO after MN tonight - Cont. PPI - Cont. Flagyl - Stool studies- O&P, Giardia, WBC, Enteric pathogens pending - Supportive care - Further recommendations to follow based on results of above Patient seen and examined by Dr. Rubio and myself and this note is written on his behalf (Sloane Shane) Physician Comments patient was seen and examined, agree with above note and plan, no diarrhea today , colon EGD in am (Steph Rubio MD) Sloane Shane Jan 21, 2017 10:37 Steph Rubio MD Jan 21, 2017 14:15
--- NOTE | 2017-01-21 10:44 | HHI.PR ---
Subjective Remarks mild abdominal pain. but, tolerating PO intake. NO n/v/d Objective Vitals Vital Signs Date Time Temp Pulse Resp B/P Pulse Ox O2 Delivery O2 Flow Rate FiO2 01/21/17 08:43 96.9 65 20 106/50 98 01/21/17 05:15 96.7 86 16 105/57 100 01/21/17 00:00 97.6 92 18 105/58 98 01/20/17 20:00 97.9 97 18 123/70 99 01/20/17 16:49 96.8 79 20 115/68 100 01/20/17 12:24 99.4 74 20 117/57 99 01/20/17 01/20/17 01/21/17 15:00 23:00 07:00 Intake Total 1440 ml 480 ml 720 ml Balance 1440 ml 480 ml 720 ml Intake Oral 1440 ml 480 ml 720 ml # Voids 2 2 3 # Bowel Movements 1 Result Diagram: 01/21/17 0547 01/21/17 0547 Imaging Last Impressions Abdomen/Pelvis CT 01/18/17 0000 Signed Impressions: Service Date/Time: Thursday, January 19, 2017 00:15 - CONCLUSION: Wall thickening and slight inflammatory change involving the distal and terminal ileum, could be infectious or inflammatory such as Crohn's disease. Ferny Morrison MD Objective Remarks GENERAL: This is a well-nourished, well-developed patient, in no apparent distress. CARDIOVASCULAR: Regular rate and rhythm without murmurs, gallops, or rubs. RESPIRATORY: Clear to auscultation. Breath sounds equal bilaterally. No wheezes , rales, or rhonchi. GASTROINTESTINAL: Abdomen soft, non-tender, nondistended. Normal active bowel sounds MUSCULOSKELETAL: Extremities without clubbing, cyanosis, or edema. NEURO: Alert & Oriented x4 to person, place, time, situation. Moves all ext x4 A/P Problem List: (1) Abdominal pain Status: Chronic Plan: - comgmt with GI - Pt has been having issues with epigastric abdominal pain and loose stools for the last year. It has been consistent for the last 15 days and worse for the last 2-3 days prior to admission. She has had N/V and unable to keep any food or fluids down - Pts pain has been related to food intake, especially fatty foods/fried foods. - Pt was noted to have leukocytosis in the ED which has improved today from 19.8K (01/18) to 7.8 (01/20/17) - CT Abd/pelvis (01/19) --> Wall thickening and slight inflammatory change involving the distal and terminal ileum, could be infectious or inflammatory such as Crohn's disease. - GB US (01/19/17) --> NO acute findings - C. Dif negative - Flagyl IV (01/19 - present) - clears - EGD/Colonoscopy --> 01/22/17 - Monitor labs - Supportive care - DVT prophylaxis with SCDs (2) Diarrhea Status: Chronic Plan: - See above. - Pt has been having loose stools on and off for the last year, typically has 1 nonbloody BM per day. - Stool studies --> pending (3) Leukocytosis Status: Acute Plan: - See above. (4) Abnormal CT of the abdomen Status: Acute Plan: - See above. Problem Qualifiers (1) Abdominal pain: Qualified Code: R10.13 - Epigastric pain (2) Diarrhea: Qualified Code: R19.7 - Diarrhea, unspecified type (3) Leukocytosis: Qualified Code: D72.829 - Leukocytosis, unspecified type Beto Do DO Jan 21, 2017 10:44
[2017-01-21 12:00] VITALS: BP 110/58; PULSE 87; RESP 21; TEMP 98.8; O2SAT 97
[2017-01-21] MEDS ORDERED: PEG (High)/E-LYTE SOLN 4000 ML BTL PO ONE (16:00)
[2017-01-21 16:02] VITALS: BP 115/60; PULSE 83; RESP 21; TEMP 96.6; O2SAT 98
[2017-01-21 20:00] VITALS: BP 119/66; PULSE 87; RESP 17; TEMP 98.2; O2SAT 100
[2017-01-21] MEDS: ONDANSETRON HCL 4 MG/2 ML VIAL IVP PRN (23:22)
[2017-01-22] VITALS (7 sets, daily range): BP systolic 101–110; BP diastolic 56–65; PULSE 75–86; RESP 16–18; TEMP 97.2–98.2; O2SAT 98–100
[2017-01-22] MEDS: metroNIDAZOLE 500 MG TAB PO SCH ×3 (05:07→21:06)
[2017-01-22] MEDS ORDERED: PROPOFOL 200 MG/20 ML AMP IV ONE (08:16)
--- NOTE | 2017-01-22 08:53 | HHI.GIFU ---
Subjective Remarks Immediate post procedure note: EGD with biopsy and colonoscopy with biopsy Indication: abdominal pain and CT showing ileitis Meds: MAC Findings: Esophagus: normal Stomach: mild chronic gastritis, biopsy taken Duodenum: normal TI Normal. biopsy taken Colon: normal Rectum: normal Objective Vitals I&O Vital Signs Date Time Temp Pulse Resp B/P Pulse Ox O2 Delivery O2 Flow Rate FiO2 01/22/17 04:00 97.8 77 16 106/60 99 01/22/17 00:00 97.2 75 16 105/56 99 01/21/17 20:00 98.2 87 17 119/66 100 01/21/17 16:02 96.6 83 21 115/60 98 01/21/17 12:00 98.8 87 21 110/58 97 I/O 01/21/17 01/21/17 01/21/17 01/22/17 01/22/17 01/22/17 07:00 15:00 23:00 07:00 15:00 23:00 Intake Total 720 ml 1440 ml 960 ml Balance 720 ml 1440 ml 960 ml Intake Oral 720 ml 1440 ml 960 ml # Voids 3 12 10 # Bowel Movements 10 Laboratory Date/Time Procedure Status Source Growth 01/19/17 14:55 Aerobic Blood Culture - Preliminary Resulted Blood Other NO GROWTH IN 2 DAYS 01/19/17 14:55 Anaerobic Blood Culture - Preliminary Resulted Blood Other NO GROWTH IN 2 DAYS Physical Exam HEENT: Normocephalic; atraumatic; no jaundice. CHEST: CTA CARDIAC: RRR. ABDOMEN: Soft, nondistended, nontender; no hepatosplenomegaly; bowel sounds x 4 quadrants. EXTREMITIES: No clubbing, cyanosis, or edema. SKIN: Normal; no rash; no jaundice. BOTTLING ATTENDANT: No focal deficits; alert and oriented x 3. Assessment and Plan Plan ASSESSMENT: - Ileitis, undetermined etiology at this time. C/O N/V/Diarrhea/Epigastric pain radiating to back, improving. She has had the same symptoms intermittently and reports that her symptoms seem to be related to food intake and her menstrual cycle. This episode began with loose stool and n/v about 15 days ago and with epigastric pain about 3-4 days ago. Recently traveled to [place], but had symptoms prior to this. Denies suspicious food/sick contacts. Abdomen/Pelvis CT (01/18/17)----> Wall thickening and slight inflammatory change involving the distal and terminal ileum, could be infectious or inflammatory such as Crohn's disease. States her mother has colon issues- unsure what kind of problems. WBC improved 9.1. C diff negative. Other stool studies pending. EGD/Colonoscopy on Sunday. Flagyl - Abdominal pain with bloating/nausea/vomiting/loose stools. CT as above. Gall Bladder Ultrasound (01/19/17)----> 1. No acute findings. Mild fatty liver. No free fluid. No right-sided hydronephrosis. No gallstones identified. PPI, Flagyl. - Abn. Wt. Loss. 10 lb weight loss over the past 15 days. - Leukocytosis. WBC improved 9.1. Flagyl PLAN: - Cont. PPI - Cont. Flagyl - Stool studies- O&P, Giardia, WBC, Enteric pathogens pending - Supportive care 09/24 EGD shows mild chronic gastritis. Biopsy taken. Colonoscopy normal to TI. No findings to suggest crohns disease. Biopsy taken from ileum. -Gastritis - No evidence of crohns disease. Possible IBS - Resume regular diet. - OK for discharge, followup as outpatient Gopal Gallegos MD Jan 22, 2017 08:53
[2017-01-22] MEDS: PANTOPRAZOLE SOD 40 MG DELAYED RELEASE TAB PO SCH (10:11)
[2017-01-22] MEDS: MORPHINE SULFATE 4 MG/ML INJ IV PRN (10:11)
[2017-01-22] MEDS: SODIUM CHLORIDE 0.9% FLUSH 10 ML FLUSH IV FLUSH SCH ×2 (10:12→21:08)
[2017-01-22] MEDS: DOCUSATE SODIUM 50 MG/SENNA 8.6 MG TAB PO SCH ×2 (10:12→21:06)
--- NOTE | 2017-01-22 13:22 | HHI.PR ---
Subjective Remarks Pt had EGD/colonoscopy with TI evaluation today --> mild chronic gastritis. Colonoscopy normal to TI. No findings to suggest Crohn's disease. Biopsy taken from ileum. Pt reports that she is still having post-prandial abdominal pain No further nausea/vomiting. Pt still having one loose BM per day, worse yesterday with bowel prep. Objective Vitals Vital Signs Date Time Temp Pulse Resp B/P Pulse Ox O2 Delivery O2 Flow Rate FiO2 01/22/17 12:00 97.8 81 16 104/57 99 01/22/17 09:05 68 18 100/64 98 01/22/17 08:55 73 18 100/55 98 01/22/17 08:44 97.0 91 18 100/52 98 01/22/17 08:00 97.6 77 16 101/61 99 01/22/17 04:00 97.8 77 16 106/60 99 01/22/17 00:00 97.2 75 16 105/56 99 01/21/17 20:00 98.2 87 17 119/66 100 01/21/17 16:02 96.6 83 21 115/60 98 01/21/17 01/21/17 01/22/17 15:00 23:00 07:00 Intake Total 1440 ml 960 ml Balance 1440 ml 960 ml Intake Oral 1440 ml 960 ml # Voids 12 10 # Bowel Movements 10 Result Diagram: 01/21/17 0547 01/21/17 0547 Other Results Laboratory Tests Test 01/20/17 01/21/17 15:15 05:47 Stool C. difficile Toxin (PCR) NEGATIVE Stl C. difficile Toxin PRESUMPTIVE Epiderm 027 NEGATIVE White Blood Count 9.1 TH/MM3 Red Blood Count 4.42 MIL/MM3 Hemoglobin 11.2 GM/DL Hematocrit 34.3 % Mean Corpuscular Volume 77.6 FL Mean Corpuscular Hemoglobin 25.3 PG Mean Corpuscular Hemoglobin 32.6 % Concent Red Cell Distribution Width 14.0 % Platelet Count 325 TH/MM3 Mean Platelet Volume 8.3 FL Neutrophils (%) (Auto) 44.7 % Lymphocytes (%) (Auto) 41.0 % Monocytes (%) (Auto) 6.6 % Eosinophils (%) (Auto) 6.6 % Basophils (%) (Auto) 1.1 % Neutrophils # (Auto) 4.1 TH/MM3 Lymphocytes # (Auto) 3.7 TH/MM3 Monocytes # (Auto) 0.6 TH/MM3 Eosinophils # (Auto) 0.6 TH/MM3 Basophils # (Auto) 0.1 TH/MM3 CBC Comment DIFF FINAL Differential Comment Sodium Level 141 MEQ/L Potassium Level 3.9 MEQ/L Chloride Level 106 MEQ/L Carbon Dioxide Level 26.3 MEQ/L Anion Gap 9 MEQ/L Blood Urea Nitrogen 10 MG/DL Creatinine 0.68 MG/DL Estimat Glomerular Filtration 108 ML/MIN Rate Random Glucose 92 MG/DL Calcium Level 8.8 MG/DL Magnesium Level 2.2 MG/DL Imaging Last Impressions Gall Bladder Ultrasound 01/19/17 0000 Signed Impressions: Service Date/Time: Thursday, January 19, 2017 10:12 - CONCLUSION: 1. No acute findings. Mild fatty liver. No free fluid. No right-sided hydronephrosis. No gallstones identified. Toro Morrissey MD Abdomen/Pelvis CT 01/18/17 0000 Signed Impressions: Service Date/Time: Thursday, January 19, 2017 00:15 - CONCLUSION: Wall thickening and slight inflammatory change involving the distal and terminal ileum, could be infectious or inflammatory such as Crohn's disease. Ferny Morrison MD Last Impressions Abdomen/Pelvis CT 01/18/17 0000 Signed Impressions: Service Date/Time: Thursday, January 19, 2017 00:15 - CONCLUSION: Wall thickening and slight inflammatory change involving the distal and terminal ileum, could be infectious or inflammatory such as Crohn's disease. Ferny Morrison MD Objective Remarks General: NAD, AAOx3 Chest: CTA Cardiac: Regular Abd: +BS, soft nondistended, RUQ and epigastric tenderness Ext: No edema A/P Problem List: (1) Abdominal pain Status: Chronic Plan: - comgmt with GI - Pt has been having issues with epigastric abdominal pain and loose stools for the last year. It has been consistent for the previous 15 days prior to admission and worse for the last 2-3 days prior to admission. She has had N/V and unable to keep any food or fluids down - Pts pain has been related to food intake, especially fatty foods/fried foods. - Pt was noted to have leukocytosis in the ED which has improved from 19.8K () to 7.8 (01/20/17) - CT Abd/pelvis (01/19) --> Wall thickening and slight inflammatory change involving the distal and terminal ileum, could be infectious or inflammatory such as Crohn's disease. - GB US (01/19/17) --> No acute findings. Mild fatty liver. No free fluid. No right-sided hydronephrosis. No gallstones identified. - C. Diff negative - Flagyl (01/19 - present) - EGD/Colonoscopy --> mild chronic gastritis. Colonoscopy normal to TI. No findings to suggest Crohn's disease. Biopsy taken from ileum. - Pt still having pain with food intake or immediate post-prandial pain with with fired/greasy foods. - Check HIDA scan to r/o acalculous cholecystitis. - Could be related to IBS - Cont. Protonix 40mg po daily - Simethicone 125mg Q8H - Monitor labs - Supportive care - DVT prophylaxis with SCDs (2) Diarrhea Status: Chronic Plan: - See above. - Pt has been having loose stools on and off for the last year, typically has 1 nonbloody BM per day. - Stool studies --> negative for C. diff (3) Leukocytosis Status: Acute Plan: - See above. (4) Abnormal CT of the abdomen Status: Acute Plan: - See above. Assessment and Plan Patient examined. Assessment and plan formulated with Shara Rdz PA-C. I agree with the above. S/P EGD/COLONOSCOPY discussed with dr Gallegos. she has some gastritis and he will exclude h.pylori. no evidence of Chrons dz at TI. Pt has alot of pain in epigastric and ruq after meals. gb u/s ok. get HIDA. simethicone and ppi. Problem Qualifiers (1) Abdominal pain: Qualified Code: R10.13 - Epigastric pain (2) Diarrhea: Qualified Code: R19.7 - Diarrhea, unspecified type (3) Leukocytosis: Qualified Code: D72.829 - Leukocytosis, unspecified type Shara Rdz Jan 22, 2017 13:22 Clif Blunt MD Jan 22, 2017 14:04
[2017-01-22] MEDS: SIMETHICONE 125 MG CHEWABLE TAB PO SCH ×2 (14:00→21:06)
[2017-01-22] MEDS: ONDANSETRON HCL 4 MG/2 ML VIAL IVP PRN (21:07)
[2017-01-23] MEDS: metroNIDAZOLE 500 MG TAB PO SCH (06:00)
[2017-01-23] MEDS: SIMETHICONE 125 MG CHEWABLE TAB PO SCH (06:00)
[2017-01-23 06:07] VITALS: BP 93/62; PULSE 76; RESP 18; TEMP 96; O2SAT 98
[2017-01-23 08:00] VITALS: BP 99/51; PULSE 74; RESP 16; TEMP 98.1; O2SAT 97
--- NOTE | 2017-01-23 08:14 | HHI.PR ---
Subjective Remarks seems to feel better after the addition of simethicone. Objective Vitals heart reg lung cta abd s/nt ext no edema Vital Signs Date Time Temp Pulse Resp B/P Pulse Ox O2 Delivery O2 Flow Rate FiO2 01/23/17 06:07 96.0 76 18 93/62 98 01/22/17 23:54 97.7 84 16 109/56 100 01/22/17 21:42 98.2 86 18 110/65 98 01/22/17 16:00 97.6 81 16 102/58 99 01/22/17 12:00 97.8 81 16 104/57 99 01/22/17 09:05 68 18 100/64 98 01/22/17 08:55 73 18 100/55 98 01/22/17 08:44 97.0 91 18 100/52 98 01/22/17 01/22/17 01/23/17 15:00 23:00 07:00 Intake Total 300 ml 1080 ml 672 ml Output Total 0 ml Balance 300 ml 1080 ml 672 ml Intake Oral 1080 ml 0 ml IV Total 672 ml Other 300 ml Output Urine Total 0 ml Stool Total 0 ml # Voids 5 3 Result Diagram: 01/21/17 0547 01/21/17 0547 Imaging Last Impressions Gall Bladder Ultrasound 01/19/17 0000 Signed Impressions: Service Date/Time: Thursday, January 19, 2017 10:12 - CONCLUSION: 1. No acute findings. Mild fatty liver. No free fluid. No right-sided hydronephrosis. No gallstones identified. Toro Morrissey MD Abdomen/Pelvis CT 01/18/17 0000 Signed Impressions: Service Date/Time: Thursday, January 19, 2017 00:15 - CONCLUSION: Wall thickening and slight inflammatory change involving the distal and terminal ileum, could be infectious or inflammatory such as Crohn's disease. Ferny Morrison MD Last Impressions Abdomen/Pelvis CT 01/18/17 0000 Signed Impressions: Service Date/Time: Thursday, January 19, 2017 00:15 - CONCLUSION: Wall thickening and slight inflammatory change involving the distal and terminal ileum, could be infectious or inflammatory such as Crohn's disease. Ferny Morrison MD A/P Problem List: (1) Abdominal pain Status: Chronic Plan: - Pt has been having issues with epigastric abdominal pain and loose stools for the last year. It has been consistent for the previous 15 days prior to admission and worse for the last 2-3 days prior to admission. She has had N/V and unable to keep any food or fluids down - Pts pain has been related to food intake, especially fatty foods/fried foods. - Pt was noted to have leukocytosis in the ED which has improved from 19.8K () to 7.8 (01/20/17) - CT Abd/pelvis (01/19) --> Wall thickening and slight inflammatory change involving the distal and terminal ileum, could be infectious or inflammatory such as Crohn's disease. - GB US (01/19/17) --> No acute findings. Mild fatty liver. No free fluid. No right-sided hydronephrosis. No gallstones identified. - C. Diff negative - Flagyl (01/19 - present) - EGD/Colonoscopy --> mild chronic gastritis. Colonoscopy normal to TI. No findings to suggest Crohn's disease. Biopsy taken from ileum. - Pt was still having pain with food intake or immediate post-prandial pain with with fried/greasy foods. - Check HIDA scan to r/o acalculous cholecystitis. - Could be related to IBS as per GI. - Cont. Protonix 40mg po daily - Simethicone 125mg Q8H - DVT prophylaxis with SCDs if hida negative then d/c home later today with GI f/u. bx pending. She seems to be complaining of less abdomen pain after meals today with addition of simethicone. (2) Diarrhea Status: Chronic Plan: - See above. - Pt has been having loose stools on and off for the last year, typically has 1 nonbloody BM per day. - Stool studies --> negative for C. diff (3) Leukocytosis Status: Acute Plan: - See above. (4) Abnormal CT of the abdomen Status: Acute Plan: - See above. Problem Qualifiers (1) Abdominal pain: Qualified Code: R10.13 - Epigastric pain (2) Diarrhea: Qualified Code: R19.7 - Diarrhea, unspecified type (3) Leukocytosis: Qualified Code: D72.829 - Leukocytosis, unspecified type Clif Blunt MD Jan 23, 2017 08:14
[2017-01-23] MEDS: SODIUM CHLORIDE 0.9% FLUSH 10 ML FLUSH IV FLUSH SCH (09:00)
[2017-01-23] MEDS: DOCUSATE SODIUM 50 MG/SENNA 8.6 MG TAB PO SCH (09:56)
[2017-01-23] MEDS: PANTOPRAZOLE SOD 40 MG DELAYED RELEASE TAB PO SCH (09:56)
--- NOTE | 2017-01-23 12:32 | HHI.GIFU ---
Subjective Remarks Pt resting in bed. States she feels better. No n/v/d, abdominal pain improved. Objective Vitals I&O Vital Signs Date Time Temp Pulse Resp B/P Pulse Ox O2 Delivery O2 Flow Rate FiO2 01/23/17 08:00 98.1 74 16 99/51 97 01/23/17 06:07 96.0 76 18 93/62 98 01/22/17 23:54 97.7 84 16 109/56 100 01/22/17 21:42 98.2 86 18 110/65 98 01/22/17 16:00 97.6 81 16 102/58 99 I/O 01/22/17 01/22/17 01/22/17 01/23/17 01/23/17 01/23/17 07:00 15:00 23:00 07:00 15:00 23:00 Intake Total 300 ml 1080 ml 672 ml Output Total 0 ml Balance 300 ml 1080 ml 672 ml Intake Oral 1080 ml 0 ml IV Total 672 ml Other 300 ml Output Urine Total 0 ml Stool Total 0 ml # Voids 5 3 Laboratory Date/Time Procedure Status Source Growth 01/19/17 14:55 Aerobic Blood Culture - Preliminary Resulted Blood Other NO GROWTH IN 4 DAYS 01/19/17 14:55 Anaerobic Blood Culture - Preliminary Resulted Blood Other NO GROWTH IN 4 DAYS Imaging Last Impressions Gall Bladder Ultrasound 01/19/17 0000 Signed Impressions: Service Date/Time: Thursday, January 19, 2017 10:12 - CONCLUSION: 1. No acute findings. Mild fatty liver. No free fluid. No right-sided hydronephrosis. No gallstones identified. Toro Morrissey MD Abdomen/Pelvis CT 01/18/17 0000 Signed Impressions: Service Date/Time: Thursday, January 19, 2017 00:15 - CONCLUSION: Wall thickening and slight inflammatory change involving the distal and terminal ileum, could be infectious or inflammatory such as Crohn's disease. Ferny Morrison MD Physical Exam HEENT: Normocephalic; atraumatic; no jaundice. CHEST: CTA CARDIAC: RRR. ABDOMEN: Soft, nondistended, nontender; no hepatosplenomegaly; bowel sounds x 4 quadrants. EXTREMITIES: No clubbing, cyanosis, or edema. SKIN: Normal; no rash; no jaundice. GIS INSTRUCTOR: No focal deficits; alert and oriented x 3. Assessment and Plan Plan ASSESSMENT: - Ileitis, undetermined etiology at this time. C/O N/V/Diarrhea/Epigastric pain radiating to back, improving. She has had the same symptoms intermittently and reports that her symptoms seem to be related to food intake and her menstrual cycle. This episode began with loose stool and n/v about 15 days ago and with epigastric pain about 3-4 days ago. Recently traveled to [place], but had symptoms prior to this. Denies suspicious food/sick contacts. Abdomen/Pelvis CT (01/18/17)----> Wall thickening and slight inflammatory change involving the distal and terminal ileum, could be infectious or inflammatory such as Crohn's disease. States her mother has colon issues- unsure what kind of problems. C diff negative. S/P EGD/Colonoscopy (01/22/17)---> Mild chronic gastritis. Biopsy taken. Colonoscopy normal to TI. No findings to suggest crohns disease. Biopsy taken from ileum. Pathology pending. Clinically improved. No further diarrhea. ? IBS. - Abdominal pain with bloating/nausea/vomiting/loose stools. CT as above. Gall Bladder Ultrasound (01/19/17)----> 1. No acute findings. Mild fatty liver. No free fluid. No right-sided hydronephrosis. No gallstones identified. Simethicone, PPI. HIDA scan pending. - Abn. Wt. Loss. 10 lb weight loss over the past 15 days. - Leukocytosis. Improved PLAN: - [facility] - Await pathology - Await HIDA - Cont. PPI - Cont. Simethicone - Okay to d/c Flagyl - OK for discharge from GI standpoint with outpatient followup if HIDA normal and tolerating diet - Pt seen and examined by Dr. Gallegos and myself and this note is written on his behalf Sujey Drew Jan 23, 2017 12:32
[2017-01-23 13:11] VITALS: BP 108/61; PULSE 92; RESP 16; TEMP 98.2; O2SAT 98
--- NOTE | 2017-01-23 13:18 | RADRPT ---
EXAM DATE/TIME: 01/23/2017 10:48 [facility] COMPARISON: No previous studies available for comparison. INDICATIONS : Abdominal pain for 1 day. DOSE: 4.1 mCi Tc99m Mebrofenin IV MEDICAL HISTORY : None SURGICAL HISTORY : None. ENCOUNTER: Initial ACUITY: 1 day PAIN SCALE: 1/10 LOCATION: Right upper quadrant TECHNIQUE: Following the intravenous administration of radiotracer, dynamic sequential images were performed wit h continuous acquisition. FINDINGS: HEPATIC KINETICS: There is prompt uptake of radiotracer in the liver. No focal defects are seen. There is normal rate of washout from the hepatic parenchyma. BILIARY CLEARANCE: Activity is first seen in the extrahepatic biliary system at 5-10 minutes. There is normal excretion into the small bowel. GALLBLADDER: Activity is first seen in the gallbladder at 30 minutes. Common bile duct kinetics are normal and th ere is no evidence of biliary obstruction. BILIARY ENTRIC REFLUX: None observed. CONCLUSION: Normal study Gene Mccormick MD on January 23, 2017 at 13:07 Board Certified Radiologist. This report was verified electronically.
[2017-01-23] MEDS ORDERED: SIME1CHW11 PO (13:38)
[2017-01-23] MEDS ORDERED: PANT40TA3 PO (13:38)
--- NOTE | 2017-01-23 13:39 | HHI.DCPOC ---
Discharge Care Plan Diagnosis: (1) Terminal ileitis (2) Leukocytosis (3) Abnormal CT of the abdomen (4) Diarrhea (5) Abdominal pain Goals to Promote Your Health * To prevent worsening of your condition and complications * To maintain your health at the optimal level Directions to Meet Your Goals Take your medications as prescribed Follow your dietary instruction Follow activity as directed Keep your appointments as scheduled Take your immunizations and boosters as scheduled If your symptoms worsen call your PCP, if no PCP go to Urgent Care Center or Emergency Room Smoking is Dangerous to Your Health. Avoid second hand smoke Call the 24-hour hour crisis hotline for domestic abuse at Shara Rdz Jan 23, 2017 13:39
--- NOTE | 2017-01-23 13:49 | HHI.DS ---
Discharge Summary Admission Date Jan 19, 2017 at 00:55 Discharge Date: Jan 23, 2017 Admitting Diagnosis leukocytosis, tachycardia, abdominal pain, diarrhea (1) Abdominal pain Diagnosis: Principal (2) Diarrhea Diagnosis: Secondary (3) Leukocytosis Diagnosis: Secondary (4) Abnormal CT of the abdomen Diagnosis: Secondary Consultants Dr. Gopal Gallegos - GI Procedures EGD/colonoscopy with TI evaluation (01/22/17) --> mild chronic gastritis, biopsy taken. Colonoscopy normal to TI. No findings to suggest Crohn's disease. Biopsy taken from ileum. Brief History Ms. Naranjo is a pleasant 21 y/o female with PCOS and chronic migraine headaches. She presented to the ED at [facility] on 01/18/17 with complaints of epigastric abdominal pain and loose stools for the last 15 days. She has had issues with episodic epigastric abdominal pain that radiates to her back. This seems to be related to food intake, worse with fried foods and fatty foods, like steak. She reports that in the last 2-3 days she has had vomiting and has been unable to hold any food or fluids down. She reports having 1 loose BM per day. Denies any melena, BRBPR or hematochezia. She states that she has had symptoms of epigastric pain and loose stools on and off for the last year since moving to the from [place]. She does report some cyclic symptoms related to her periods but also related the abdominal pain to food intake. She has lost about 5lbs in the last week. Pt has had subjective fevers on and off which she relates to issues with her sinuses as she reports having chronic sinusitis. She denies any recent antibiotic use. CT Abd/pelvis in the ED noted wall thickening and slight inflammatory change involving the distal and terminal ileum, could be infectious or inflammatory such as Crohn's disease. She reports that her mother has had issues with her colon but the specific of this are unclear. Pt denies any palpitations, hematemesis, dizziness, weakness, SOB or chest pain. CBC/BMP: 01/21/17 0547 01/21/17 0547 Significant Findings Laboratory Tests Test 01/21/17 05:47 Hemoglobin 11.2 GM/DL (11.6-15.3) Hematocrit 34.3 % (35.0-46.0) Mean Corpuscular Volume 77.6 FL (80.0-100.0) Mean Corpuscular Hemoglobin 25.3 PG (27.0-34.0) Eosinophils (%) (Auto) 6.6 % (0.0-4.0) Eosinophils # (Auto) 0.6 TH/MM3 (0-0.4) Imaging Last Impressions Hepatobiliary Scan Nuclear Medicine 01/23/17 0000 Signed Impressions: Service Date/Time: Monday, January 23, 2017 10:48 - CONCLUSION: Normal study Gene Mccormick MD Gall Bladder Ultrasound 01/19/17 0000 Signed Impressions: Service Date/Time: Thursday, January 19, 2017 10:12 - CONCLUSION: 1. No acute findings. Mild fatty liver. No free fluid. No right-sided hydronephrosis. No gallstones identified. Toro Morrissey MD Abdomen/Pelvis CT 01/18/17 0000 Signed Impressions: Service Date/Time: Thursday, January 19, 2017 00:15 - CONCLUSION: Wall thickening and slight inflammatory change involving the distal and terminal ileum, could be infectious or inflammatory such as Crohn's disease. Ferny Morrison MD Hospital Course Pt has been having issues with epigastric abdominal pain and loose stools for the last year. It had been consistent for the previous 15 days prior to admission and worse for the last 2-3 days prior to admission. She had N/V and was unable to keep any food or fluids down. Pts pain has been related to food intake, especially fatty foods/fried foods. Pt was noted to have leukocytosis in the ED which has improved from 19.8K (01/18) to 7.8 (01/20/17). CT Abd/pelvis ( 01/19) --> Wall thickening and slight inflammatory change involving the distal and terminal ileum, could be infectious or inflammatory such as Crohn's disease. GB US (01/19/17) --> No acute findings. Mild fatty liver. No free fluid. No right-sided hydronephrosis. No gallstones identified. Stool were checked for C. Diff and were negative. Pt was treated with Flagyl (01/19 - 01/23) . Pt underwent evaluation with EGD/colonoscopy with TI evaluation (01/22/17) --> mild chronic gastritis, biopsy taken. Colonoscopy normal to TI. No findings to suggest Crohn's disease. Biopsy taken from ileum. Pt was still having pain with food intake or immediate post-prandial pain with with fried/greasy foods on 01/22. HIDA scan was performed on 01/23 and was negative. Simethicone was added on 01/22 and pt had some improvement in her symptoms. Pt will be continued on Simethicone and Protonix 40mg po daily. Pt will need to followup with her PCP, Dr. Davis, in 1 week. Pt will need to followup with [facility] in 2 weeks. Pt Condition on Discharge: Stable Discharge Disposition: Discharge Home Discharge Instructions DIET: Follow Instructions for: Low Fat Diet Activities you can perform: Regular-No Restrictions Follow up Referrals: Gastroenterology - 2 Weeks @ [facility] PCP Follow-up - [address] Yuliana Davis New Medications: Pantoprazole (Pantoprazole) 40 Mg Tab 40 MG PO DAILY gastritis #30 TAB Simethicone (Gas Relief Maximum Streng) 125 Mg Chw 125 MG PO Q8HR gas pain #90 EA Continued Medications: Hydrocodone-Acetaminophen (Lortab) 5-325 Mg Tab 1 TAB PO Q6H PRN PAIN Ref 0 TAB Discontinued Medications: Miscellaneous (Office Medication) Misc Naproxen Sodium (Naproxen Sodium) 220 Mg Tab 550 MG PO BID PRN Pain Management Ref 0 TAB Shara Rdz Jan 23, 2017 13:49
--- NOTE | 2017-01-23 23:19 | MP ---
cc: NELLIE GALLEGOS,BETO Rizzo DO DATE OF SURGERY: 01/22/2017 PROCEDURE: Esophagogastroduodenoscopy with biopsy and colonoscopy with biopsy. INDICATIONS: Abdominal pain and CT scan showing ileitis. REFERRING PHYSICIAN: Dr. Beto Do PROCEDURE: After informed consent was obtained the patient was placed in the left side down position. She was sedated by the anesthesia service. After adequate sedation was achieved, the Pentax video gastroscope was inserted in the oropharynx, advanced to the esophagus, stomach and duodenum. It was then slowly withdrawn examining the mucosal surfaces carefully. Retroflex exam was performed of the fundus and cardia. The scope was then straightened and biopsies were obtained in the gastric antrum. The scope was then withdrawn out the mouth, and the procedure was terminated. Colonoscopy was performed. Digital rectal examination was normal. The Pentax video colonoscope was inserted in the anal canal advanced to the colon region, the terminal ileum. Biopsy was taken there. The scope was then withdrawn slowly through the colon. Retroflex examination was performed in the rectum. The scope was then straightened, pulled through the anal canal, and the procedure was terminated. She tolerated both procedures well and was returned to the recovery area in good condition. FINDINGS: 1. Esophagus was normal. 2. In the stomach there was mild chronic gastritis. Biopsy was taken. 3. The duodenum was normal. 4. The terminal ileum was normal. Biopsy was taken. 5. Colon was normal. 6. Rectum was normal. IMPRESSION: 1. Chronic appearing gastritis. Possible H. pylori. 2. Normal colonoscopy with biopsy taken from the terminal ileum. No evidence of ileitis on this exam. 3. Possible irritable bowel syndrome. RECOMMENDATIONS: 1. Continue the proton pump inhibitor. 2. May discontinue the Flagyl. 3. Await the biopsy results as an outpatient. 4. She may be discharged home if she tolerates regular diet. 5. She should follow up in the office as an outpatient. Nellie Gallegos MD [facility] /9:02 AM /11:10 PM
== END 2017-01-23 15:16 | disposition home or self-care (01) ==
LOC: NEPE 20:43 → INTOOBSV 01-19 00:55 → NEDA 01-19 00:55 → HOCB 01-19 03:07
PROVIDERS: ADMIT Hospitalist; ATTEND Hospitalist
DX: K29.50 Unspecified chronic gastritis without bleeding (principal); R00.0 Tachycardia, unspecified; K21.9 Gastro-esophageal reflux disease without esophagitis; K50.00 Crohn's disease of small intestine without complications; E28.2 Polycystic ovarian syndrome; G43.909 Migraine, unspecified, not intractable, without status migrainosus; F32.9 Major depressive disorder, single episode, unspecified; E04.1 Nontoxic single thyroid nodule; F41.9 Anxiety disorder, unspecified; K76.0 Fatty (change of) liver, not elsewhere classified; D72.829 Elevated white blood cell count, unspecified; R63.4 Abnormal weight loss
CPT/HCPCS: 00740; 00810; 43239; 45380; 74177; 76705; 78226; 80048; 80053; 81001; 82948; 83605; 83690; 83735; 84703; 85025; 87040; 87493; 88305; 88312; 96374; 96375; 99285; A9537; C9113; G0378; J2270; J2405; J7030; Q9967